=== PATIENT | female | born 1940 | race Caucasian/White ===

== ENCOUNTER 2016-02-17 10:04 | Outpatient (CLI) | payer MEDICARE, BC | END 2016-02-17 10:05 | disposition home or self-care (01) | LOC: BURLAB 10:04 | PROVIDERS: ATTEND Internal Medicine Hematology & Oncology | DX: C56.9 Malignant neoplasm of unspecified ovary (principal); R11.2 Nausea with vomiting, unspecified | CPT/HCPCS: 36415; 86304 ==

== ENCOUNTER 2016-02-22 08:33 | Outpatient (CLI) | payer MEDICARE, BC ==
[2016-02-22] MEDS ORDERED: Iopamidol 370 76% 100 ML VIAL ONE (09:00)
--- NOTE | 2016-02-22 16:28 | CT ---
CT ABDOMEN AND PELVIS WITH CONTRAST 02/22/2016 COMPARISON: PET CT scan from 12/30/2014, done at [facility]. TECHNIQUE: Axial slices were acquired after giving IV contrast and oral contrast. Coronal and sag ittal reconstructions were then done. FINDINGS: The lung bases are clear. No pulmonary nodules or effusions are seen. As before, numerous cystic lesions are seen throughout the liver. They seem slightly more numerous than before and a few are larger, though, on the prior PET scan, I note that there was no activity i n this region. Gallstones are seen in the gallbladder. The spleen and pancreas are unremarkable. A small nodule in the left adrenal gland is stable, measuring about 1.5 cm in size. The kidneys are unremarkable. The abdominal aorta is calcified but shows no aneurysm. The bowel is nondistended with no sign of obstruction. There is a moderate amount of fecal material in the colon. No inflammatory changes are seen around the bowel, nor is there any bowel wall thick ening, evidence of obstruction, or other acute change. There is no free fluid in the abdomen or pelvis. Regarding the mass seen in the left pericolic gutt er previously, it has increased in size over the interval, now measuring 2.1 cm in length. I could not detect the nodule seen in the anterior pelvis on the prior study, probably due to the patient's bladder being very distended today, making that area difficult to see. There is an enhancing nodule posterior to the urinary bladder, on the right, measuring 1.7 cm in size, correlating with a prior hypermetabolic focus. The size is similar to before. There are two other areas in the deep pelvis, of a questionable small, subcentimeter nodule, one measuring 6.5 mm, on the right, and another junior uring about 8 to 9 mm, on the left, just anterior to the left SI joint. Obviously, a repeat PET sca n would be helpful in determining if these were significant. CT of the pelvis otherwise showed no additional findings. No inflammatory change or free fluid was present. IMPRESSION 1. The nodule in the left pericolic gutter has increased in size slightly over time. The anterior pelvic nodule was not visible. The posterior pelvic nodule, posterior to the urinary bladder, is ab out the same size (1.7 cm). There may be two other subcentimeter nodules in the pelvis, though this is less certain. 2. No evidence of ascites or other signs of increasing abdominal fluid. 3. Scattered hepatic cysts that seem slightly larger and slightly more numerous than in 2015. 4. Gallstones. 5. Stable left adrenal mass, most likely benign. POS: HOME
== END 2016-02-22 08:34 | disposition home or self-care (01) ==
LOC: BURCT 08:33
PROVIDERS: ATTEND Internal Medicine Hematology & Oncology
DX: C56.9 Malignant neoplasm of unspecified ovary (principal); K80.80 Other cholelithiasis without obstruction
CPT/HCPCS: 74177

== ENCOUNTER 2016-03-30 09:25 | Outpatient (CLI) | payer MEDICARE, BC | END 2016-03-30 09:26 | disposition home or self-care (01) | LOC: BURLAB 09:25 | PROVIDERS: ATTEND Internal Medicine Hematology & Oncology | DX: C56.9 Malignant neoplasm of unspecified ovary (principal); R11.2 Nausea with vomiting, unspecified | CPT/HCPCS: 36415; 86304 ==

== ENCOUNTER 2016-04-21 08:45 | Outpatient (CLI) | payer MEDICARE, BC | END 2016-04-21 08:46 | disposition home or self-care (01) | LOC: BURLAB 08:45 | PROVIDERS: ATTEND Internal Medicine Hematology & Oncology | DX: C56.9 Malignant neoplasm of unspecified ovary (principal); R11.2 Nausea with vomiting, unspecified | CPT/HCPCS: 36415; 86304 ==

== ENCOUNTER 2016-08-22 08:55 | Outpatient (CLI) | payer MEDICARE, BC ==
[2016-08-22] MEDS ORDERED: Iopamidol 370 76% 100 ML VIAL ONE (09:00)
--- NOTE | 2016-08-22 21:46 | CT ---
CT ABDOMEN AND PELVIS WITH CONTRAST: Comparison: 02-22-16, 02-28-13 Technique: Axial slices were acquired then coronal and sagittal reconstructions were done. FINDINGS: The lung bases are clear. Liver is stable in size. There are multiple cystic areas scattered through out it. Looking over the interval there seems to have been slight increase in the size of some the c ystic areas and perhaps a few new ones as well. The liver is normal in size. The pancreas showed no mass. The main pancreatic duct is visible but not greatly dilated. Gallstones are noted in the gallb ladder. The kidney showed no sign of mass or hydronephrosis. There is a small mass in the left adren al gland measuring about 1.4 cm in size that is stable and has characteristics of an adenoma. The ab dominal aorta showed no sign of aneurysm. It is densely calcified in places, however. The bowel showed no sign of obstruction. No ascites is present. No free air was seen. There are no i nflammatory changes around bowel. The February scan showed a 2.1 cm nodular density in the left paracolic gutter near the iliac crest. I cannot definitely identify it on today's study. Additionally, the former study showed what appears to be nodule between the rectum and the urinary bladder to the right of midline. There is some lester t increased density here but I cannot confirm a measurable nodule. No free fluid is seen in the pelv is. Old post op changes and degenerative findings are present in the patient's spine. IMPRESSION: 1. Multiple small cystic areas in the liver. Some have increased slightly in size since February whic h may be significant. A PET scan might be useful to know if any of these are hypermetabolic. 2. The left paracolic gutter nodule seen in February is not clearly visible on today's scan, nor is t he nodule that was seen between the rectum and urinary bladder to the right side of midline. 3. Gallstones. 4. Stable left adrenal nodule. POS: HOME
== END 2016-08-22 08:56 | disposition home or self-care (01) ==
LOC: BURCT 08:55
PROVIDERS: ATTEND Internal Medicine Hematology & Oncology
DX: C48.8 Malignant neoplasm of overlapping sites of retroperitoneum and peritoneum (principal); C56.9 Malignant neoplasm of unspecified ovary; K80.20 Calculus of gallbladder without cholecystitis without obstruction; K76.89 Other specified diseases of liver; E27.9 Disorder of adrenal gland, unspecified
CPT/HCPCS: 74177; A4216

== ENCOUNTER 2016-08-24 03:14 | Emergency (ER) | payer MEDICARE, BC ==
[2016-08-24] MEDS ORDERED: Nitroglycerin 0.4 MG TAB (25 Tab Bottle) ONE (03:39)
[2016-08-24 03:54] LABS: INR-International Normal Ratio 1.1; PTT 30.6 SEC (22.9-36.1); Prothrombin Time 14.1 SEC (12.0-14.7)
[2016-08-24 03:57] LABS: #Basophils 0.1 thou/uL (0.0-0.2); #Eosinphils 0.2 thou/uL (0.0-0.7); #Lymphocytes 1.5 thou/uL (1.20-3.40); #Neutrophils 5.3 thou/uL (1.40-6.50); %Eosinophils 2.5 % (0.0-10.0); %Lymphocytes 18.7 % (21.0-51.0); %Monocytes 12.8 % (0.0-10.0); Hemoglobin 9.7 g/dL (12.0-16.0); Mean Corpuscular HGB CONC 34.6 g/dL (32.0-36.0); Mean Corpuscular Hemoglobin 32.6 pg (27.0-31.0); Mean Corpuscular Volume 94.2 fl (81.0-99.0); Mean Platelet Volume 7.5 fL (7.4-10.4); Platelet Count 137 thou/uL (130-400); RBC Distribution Width 17.7 % (11.5-14.5); Red Blood Cell (RBC) Count 2.98 mill/uL (4.20-5.40); White Blood Cell (WBC) Count 8.1 thou/uL (4.8-10.8)
[2016-08-24 04:02] LABS: ALT (SGPT) 91 U/L (8-55); AST (SGOT) 72 U/L (5-34); Albumin 3.7 g/dL (3.4-4.8); Alkaline Phosphatase 158 U/L (40-150); Anion Gap 15 mmol/L (10-20); BUN (Urea Nitrogen) 16 mg/dL (9.8-20.1); Bilirubin, Total 0.2 mg/dL (0.2-1.2); Calc. Creatinine Clearance 0 mL/min (70-130); Carbon Dioxide 23 mmol/L (23-31); Chloride 103 mmol/L (98-107); D-Dimer Test 0.52 *mcg/mL (0.27-0.43); Estimated GFR-MDRD 72; Globulin 2.9 g/dL (2.4-3.5); Glucose 98 mg/dL (83-110); Potassium 4.3 mmol/L (3.5-5.1); Protein, Total 6.6 g/dL (6.0-8.3); Sodium 137 mmol/L (136-145)
[2016-08-24 04:03] LABS: CKMB 1.2 ng/mL (0-6.6); Troponin I Less than 0.010 ng/mL (< 0.028)
--- NOTE | 2016-08-24 07:20 | RAD ---
PORTABLE CHEST: Date: 08/24/16 An AP portable film at 0331 hours is compared with a 03/03/15 study from [facility]. FINDINGS: The heart is normal in size for age. The lungs are mildly hyperexpanded, but no lobar infiltrates ar e seen. No effusions are seen. While no opacities were seen in the lungs, see CT report to follow. M ediPort catheter is in place on the right as usual. IMPRESSION: No adverse change since the prior study. See CT report to follow. POS: HOME
--- NOTE | 2016-08-24 08:00 | CT ---
PRELIMINARY REPORT/[facility]/EMERGENCY AFTER HOURS PROCEDURE: EXAM: CT Angiography Chest With Intravenous Contrast CT Angiography Abdomen and Pelvis With Intravenous Contrast CLINICAL HISTORY: 76 years old, female; Signs and symptoms; Shortness of breath; Patient HX: Patient presents to the e r for sub-sternal chest pain; SOB. Elevated d-dimer. HX of ovarian ca on chemo TECHNIQUE: Axial computed tomographic angiography images of the chest, abdomen and pelvis with intravenous cont rast using CT angiography protocol. This CT exam was performed using one or more of the following do se reduction techniques: automated exposure control, adjustment of the mA and/or kV according to patient size, and/or use of iterative reconstruction technique. Coronal reformatted images were created and reviewed. CONTRAST: 95 mL of ISOVUE 370 administered intravenously. COMPARISON: No relevant prior studies available. FINDINGS: VASCULATURE: Aorta: The ascending aorta at the level of the right pulmonary artery measures 3 cm. Mild atheroscle rotic calcifications affect the aorta and its branches. No aortic aneurysm. No dissection. Pulmonary arteries: The main pulmonary artery measures 2.3 cm. No evidence of acute pulmonary emboli sm upto the subsegmental level. CHEST: Lungs: Mild atelectasis is seen in both lung bases. Patchy opacities in the right upper lobe, middle lobe and lingula may represent atelectasis or infection. Pleural space: Unremarkable. No significant effusion. No pneumothorax. Heart: Unremarkable. No cardiomegaly. No significant pericardial effusion. Bones/joints: There are mild degenerative changes present. Mild dextroscoliosis of the thoracic spin e is seen. Amorphous calcification posterior to both humeral heads likely represents calcific tendinosis. No acute fracture. No dislocation. Soft tissues: Unremarkable. Lymph nodes: Unremarkable. No enlarged lymph nodes. ABDOMEN: Subcentimeter hypodensities in the liver are too small to characterize.The visualized portions of t he upper abdomen show no significant abnormalities. IMPRESSION: 1. No evidence of acute pulmonary embolism upto the subsegmental level. 2. Patchy opacities in the right upper lobe, middle lobe and lingula may represent atelectasis or in fection. 3. Subcentimeter hypodensities in the liver are too small to characterize. Thank you for allowing us to participate in the care of your patient. Dictated and Authenticated by: Karlene Godfrey MD 08/24/2016 5:30 AM Central Time ([place] \T\ [place]) FINAL REPORT CT ANGIO OF THE CHEST WITH CONTRAST: Date: 08/24/[address] of the chest was done emergently for evaluation of chest pain and an elevated D-Dimer. Axi al slices were acquired after a bolus of IV contrast, then reconstructions through the pulmonary art eries were done. FINDINGS: There is excellent opacification of the pulmonary arteries with no filling defects to suggest emboli . Arteriosclerotic change is present in the aorta and coronary vessels. There is no sign of pericard ial effusion. No mediastinal mass was seen. There are a few patchy hypodensities in this patient's lungs that are scattered. More are in the lef t lung, especially the lingula, but some in the right upper lobe as well. The findings could represe nt patches of atelectasis or infection. Less likely would be neoplasm, though a PET scan would proba malcolm be better at assessing that. There are no effusions. The scans through the upper abdomen show se veral scattered cystic changes in the liver, which have been described on the recent abdominal CT sc an. IMPRESSION: 1. No evidence of pulmonary embolism. 2. A few patchy opacities scattered throughout the lungs, left more than right. See comments above. These will probably bear future follow-up. Report in agreement with preliminary reading by Sravanthi. POS: HOME
== END 2016-08-24 05:25 | disposition short-term general hospital (02) ==
LOC: BURERS 03:14
DX: R07.2 Precordial pain (principal); E78.5 Hyperlipidemia, unspecified; I10 Essential (primary) hypertension; Z86.73 Personal history of transient ischemic attack (TIA), and cerebral infarction without residual deficits
CPT/HCPCS: 71010; 71275; 80053; 82553; 84484; 85025; 85379; 85610; 85730; 93005

== ENCOUNTER 2016-09-13 08:28 | Outpatient (CLI) | payer MEDICARE, BC ==
[2016-09-13 09:00] LABS: Hemoglobin 7.9 g/dL (12.0-16.0); Mean Corpuscular HGB CONC 34.1 g/dL (32.0-36.0); Mean Corpuscular Hemoglobin 32.3 pg (27.0-31.0); Mean Corpuscular Volume 94.7 fl (81.0-99.0); Mean Platelet Volume 6.2 fL (7.4-10.4); Platelet Count 151 thou/uL (130-400); RBC Distribution Width 18.2 % (11.5-14.5); Red Blood Cell (RBC) Count 2.46 mill/uL (4.20-5.40); White Blood Cell (WBC) Count 2.7 thou/uL (4.8-10.8)
== END 2016-09-13 08:29 | disposition home or self-care (01) ==
LOC: BURLAB 08:28
PROVIDERS: ATTEND Internal Medicine Hematology & Oncology
DX: C48.8 Malignant neoplasm of overlapping sites of retroperitoneum and peritoneum (principal); C56.9 Malignant neoplasm of unspecified ovary; R11.2 Nausea with vomiting, unspecified
CPT/HCPCS: 36415; 85027

== ENCOUNTER 2016-10-31 08:22 | Outpatient (CLI) | payer MEDICARE, BC ==
[2016-10-31 09:13] LABS: ALT (SGPT) 19 U/L (8-55); AST (SGOT) 28 U/L (5-34); Albumin 4.1 g/dL (3.4-4.8); Alkaline Phosphatase 93 U/L (40-150); Anion Gap 13 mmol/L (10-20); BUN (Urea Nitrogen) 22 mg/dL (9.8-20.1); Bilirubin, Total 0.3 mg/dL (0.2-1.2); Calc. Creatinine Clearance 0 mL/min (70-130); Calcium 9.6 mg/dL (7.8-10.44); Carbon Dioxide 24 mmol/L (23-31); Cardiac Risk 3.7 (Less than 4.5); Chloride 106 mmol/L (98-107); Cholesterol 201 mg/dl (< 200 Desired); Estimated GFR-MDRD 70; Globulin 2.2 g/dL (2.4-3.5); Glucose 94 mg/dL (83-110); HDL Cholesterol 54 mg/dL (>60 Neg Risk); LDL Cholesterol, Calculated 132 mg/dL; Potassium 4.8 mmol/L (3.5-5.1); Protein, Total 6.3 g/dL (6.0-8.3); Sodium 138 mmol/L (136-145); Triglycerides 77 mg/dL (Less than 150)
[2016-10-31 09:24] LABS: #Basophils 0.1 thou/uL (0.0-0.2); #Eosinphils 0.1 thou/uL (0.0-0.7); #Lymphocytes 1.5 thou/uL (1.20-3.40); #Monocytes 0.8 thou/uL (0.11-0.59); #Neutrophils 2.6 thou/uL (1.40-6.50); %Basophils 2.2 % (0.0-1.0); %Eosinophils 2.8 % (0.0-10.0); %Lymphocytes 29.2 % (21.0-51.0); %Monocytes 14.9 % (0.0-10.0); %Neutrophils 50.8 % (42.0-75.0); Hemoglobin 10.2 g/dL (12.0-16.0); Mean Corpuscular HGB CONC 31.4 g/dL (32.0-36.0); Mean Corpuscular Hemoglobin 29.7 pg (27.0-31.0); Mean Corpuscular Volume 94.7 fl (81.0-99.0); Mean Platelet Volume 6.3 fL (7.4-10.4); Platelet Count 277 thou/uL (130-400); RBC Distribution Width 18.4 % (11.5-14.5); Red Blood Cell (RBC) Count 3.42 mill/uL (4.20-5.40); White Blood Cell (WBC) Count 5.1 thou/uL (4.8-10.8)
[2016-10-31 09:27] LABS: Free T4 (Free Thyroxine) 1.01 ng/dL (0.70-1.48)
== END 2016-10-31 08:23 | disposition home or self-care (01) ==
LOC: BURLAB 08:22
PROVIDERS: ATTEND Internal Medicine
DX: C56.9 Malignant neoplasm of unspecified ovary (principal); I45.10 Unspecified right bundle-branch block; M15.0 Primary generalized (osteo)arthritis; I10 Essential (primary) hypertension; Z79.899 Other long term (current) drug therapy
CPT/HCPCS: 36415; 80053; 80061; 84439; 84443; 85025

== ENCOUNTER 2017-02-23 08:03 | Emergency (ER) | payer MEDICARE, BC | END 2017-02-23 08:34 | disposition home or self-care (01) | LOC: BURERS 08:03 | DX: G44.209 Tension-type headache, unspecified, not intractable (principal); I10 Essential (primary) hypertension; E78.5 Hyperlipidemia, unspecified; Z86.73 Personal history of transient ischemic attack (TIA), and cerebral infarction without residual deficits | CPT/HCPCS: 99283 ==

== ENCOUNTER 2017-03-23 10:26 | Outpatient (CLI) | payer MEDICARE, BC ==
--- NOTE | 2017-03-23 12:55 | RAD ---
CERVICAL SPINE: Date: 03-23-17 FINDINGS: AP, lateral, and odontoid views were provided. There is severe degenerative changes in this patient's cervical spine. 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 There is disc space narrowing with large osteophytes at C3-4, C5-6 and C6-7. There is a prominent anterolisthesis of C7 o n T1 by at least 5 mm. This appears to be due to facet arthritis which is prominent at this level. Th e C1-2 dens distance is normal. There are no signs of bony destruction or fracture. The soft tissues are normal in thickness. IMPRESSION: Severe degenerative changes as noted above. POS: [facility]
== END 2017-03-23 10:27 | disposition home or self-care (01) ==
LOC: BURRAD 10:26
PROVIDERS: ATTEND Family Medicine
DX: M54.2 Cervicalgia (principal); M47.812 Spondylosis without myelopathy or radiculopathy, cervical region
CPT/HCPCS: 72040

== ENCOUNTER 2017-04-20 22:07 | Emergency (ER) | payer MEDICARE, BC ==
[2017-04-20] MEDS ORDERED: traMADol HCl 50 MG TAB ONE (22:42)
[2017-04-20 22:59] LABS: Bilirubin Negative (Negative); Blood, Urine Trace (Negative); Clarity Clear (Clear); Glucose, Urine (Dipstick) Negative (Negative); Leukocyte Negative (Negative); Nitrite Negative (Negative); Protein, Urine (Dipstick) > or equal to 300 mg/dL (Neg-Trace); Specific Gravity, Urine 1.015 (1.005-1.030); Urobilinogen 0.2 mg/dL (0.2-1.0); pH, Urine 5.5 (5.0-9.0)
[2017-04-20 23:06] LABS: Bacteria/HPF Rare-Few HPF (None Seen); RBC/HPF 0-3 HPF (0-3); Squamous Epithelial 0-3 HPF (0-3)
[2017-04-20 23:07] LABS: #Basophils 0.1 thou/uL (0.0-0.2); #Eosinphils 0.2 thou/uL (0.0-0.7); #Monocytes 0.7 thou/uL (0.11-0.59); #Neutrophils 4.9 thou/uL (1.40-6.50); %Basophils 1.6 % (0.0-1.0); %Eosinophils 2.5 % (0.0-10.0); %Lymphocytes 25.4 % (21.0-51.0); %Neutrophils 61.5 % (42.0-75.0); Hemoglobin 13.4 g/dL (12.0-16.0); Mean Corpuscular HGB CONC 35.1 g/dL (32.0-36.0); Mean Corpuscular Hemoglobin 29.7 pg (27.0-31.0); Mean Corpuscular Volume 84.5 fl (81.0-99.0); Mean Platelet Volume 7.8 fL (7.4-10.4); Platelet Count 191 thou/uL (130-400); RBC Distribution Width 15.1 % (11.5-14.5); Red Blood Cell (RBC) Count 4.51 mill/uL (4.20-5.40)
[2017-04-20 23:16] LABS: ALT (SGPT) 19 U/L (8-55); AST (SGOT) 24 U/L (5-34); Albumin 3.9 g/dL (3.4-4.8); Alkaline Phosphatase 90 U/L (40-150); Anion Gap 13 mmol/L (10-20); BUN (Urea Nitrogen) 21 mg/dL (9.8-20.1); Bilirubin, Total 0.3 mg/dL (0.2-1.2); Calc. Creatinine Clearance 0 mL/min (70-130); Calcium 9.3 mg/dL (7.8-10.44); Carbon Dioxide 26 mmol/L (23-31); Chloride 102 mmol/L (98-107); Estimated GFR-MDRD 73; Globulin 2.4 g/dL (2.4-3.5); Glucose 92 mg/dL (83-110); Potassium 4.6 mmol/L (3.5-5.1); Protein, Total 6.3 g/dL (6.0-8.3); Sodium 136 mmol/L (136-145)
[2017-04-20] MEDS ORDERED: Lisinopril 20 MG TAB ONE (23:27)
[2017-04-20] MEDS ORDERED: Ketorolac Tromethamine 30 MG/ML VIAL ONE (23:27)
== END 2017-04-20 23:55 | disposition home or self-care (01) ==
LOC: BURERS 22:07
DX: I10 Essential (primary) hypertension (principal); M54.2 Cervicalgia; E78.5 Hyperlipidemia, unspecified; Z85.43 Personal history of malignant neoplasm of ovary; Z86.73 Personal history of transient ischemic attack (TIA), and cerebral infarction without residual deficits; Z79.899 Other long term (current) drug therapy
CPT/HCPCS: 36415; 80053; 81003; 81015; 84443; 85025; 96372; J1885

== ENCOUNTER 2017-06-28 09:02 | Emergency (ER) | payer MEDICARE, BC ==
--- NOTE | 2017-06-28 09:40 | RAD ---
LEFT ELBOW FOUR VIEWS: History: Fall with injury and pain. FINDINGS: There is a mildly displaced and distracted fracture involving the olecranon of the proximal ulna. There is also bony fragment along the lateral epicondyle concerning for acute fracture. There is join t effusion. IMPRESSION: 1. Fracture of the olecranon with mild displacement. 2. Evidence of fracture fragment from the lateral epicondyle. This is an age indeterminate fragment a s this does show some cortication and may represent an old injury. POS: [facility]
--- NOTE | 2017-06-28 12:31 | ULT ---
LEFT UPPER EXTREMITY VENOUS DUPLEX STUDY: Technique: Veins of left upper extremity evaluated with color doppler spectral analysis, and compress ion. Indications: Fall with elbow fracture and left upper extremity pain and edema. FINDINGS: Left jugular vein shows normal flow and compression. The left subclavian vein shows normal flow with doppler. Left axillary vein, brachial vein, left basilic vein and left cephalic vein show normal flow and compression. The left radial and ulnar veins were imaged and show normal flow and compression. IMPRESSION: 1. No evidence of left upper extremity venous thrombosis. POS: [facility]
== END 2017-06-28 11:12 | disposition home or self-care (01) ==
LOC: BURERS 09:02
DX: S52.022A Displaced fracture of olecranon process without intraarticular extension of left ulna, initial encounter for closed fracture (principal); I10 Essential (primary) hypertension; E78.5 Hyperlipidemia, unspecified; Z86.73 Personal history of transient ischemic attack (TIA), and cerebral infarction without residual deficits; W19.XXXA Unspecified fall, initial encounter
CPT/HCPCS: 24670

== ENCOUNTER 2017-07-12 14:31 | Outpatient (CLI) | payer MEDICARE, BC ==
--- NOTE | 2017-07-13 07:43 | RAD ---
LEFT RIBS WITH PA CHEST 07/12/17 The chest film was compared with a 08/24/16 study. The heart is normal in size. Dense calcification is seen in the aortic arch. There is no vascular con gestion, edema, or pleural effusion. A Mediport catheter is in place as before. The lungs are clear e xcept for some lingular scarring. Regarding the ribs, there are fractures of the left 8th and 9th ribs near their distal ends. There is no significant displacement lower few ribs are difficult to see well beyond that point. There is no pneumothorax or pleural effusion. IMPRESSION: Fractures of the distal ends of the left 8th and 9th ribs. Code T POS: HOME
== END 2017-07-12 14:32 | disposition home or self-care (01) ==
LOC: BURRAD 14:31
PROVIDERS: ATTEND Family Medicine
DX: S22.42XA Multiple fractures of ribs, left side, initial encounter for closed fracture (principal); R07.81 Pleurodynia

== ENCOUNTER 2018-03-06 09:11 | Outpatient (CLI) | payer MEDICARE, BC ==
--- NOTE | 2018-03-06 23:23 | CT ---
CT ABDOMEN AND PELVIS WITH CONTRAST 03/06/18 Comparison is made with the 08/22/16 study. Axial slices were acquired after giving oral and IV contra st. Coronal and sagittal reconstructions were done afterwards. The lung bases are clear. There are no effusions. As before, there are multiple cystic lesions spread throughout the liver. They are approximately the same in number. There are a few of the larger ones that are slightly larger than before. The largest is in the medial right lobe of the liver and measur es about 1.6 cm today compared to 1.5 cm before. The spleen and pancreas were unremarkable. There aster ears to be a gallstone in the gallbladder. A left adrenal mass has been noted previously. On the prio r scan it measured about 1.4 cm in size, but today it is about 1.8 cm. A cyst in the upper pole of th e left kidney is unchanged. No solid renal masses are seen and no hydronephrosis is present. The aort a is calcified but no dilated. There is no distention of bowel to suggest obstruction. Some of the small intestinal bowel wall in th e pelvic region seems thickened. I do not see substantial amounts of fluid around the bowel. No free air was seen. CT of the pelvis showed no pelvic mass or large fluid collection. As noted above, some of the loops o f small bowel seem rather thick which is a nonspecific finding. Degenerative changes are seen in the spine and there is a posterior lumbar fusion at the lower three levels. IMPRESSION: 1. Slight growth in some of the cystic lesions of the liver over time. The overall number is sim ilar. 2. The left adrenal mass has increased in size slightly. 3. Some apparent thickening of the bowel wall of the small intestine in the pelvic region. This is a nonspecific finding that could be seen in anything from mild enteritis to neoplastic disease. 4. No substantial amount of fluid seen in the abdomen or pelvis. 5. An additional finding not mentioned above was one or two nodes in the small bowel mesentery t hat measured up to 1.5 cm in size. PET scan would be much more sensitive looking for any hypermetabol ic activity than this single CT scan. POS: HOME
== END 2018-03-06 09:12 | disposition home or self-care (01) ==
LOC: BURCT 09:11
PROVIDERS: ATTEND Internal Medicine Hematology & Oncology
DX: C48.8 Malignant neoplasm of overlapping sites of retroperitoneum and peritoneum (principal); C56.9 Malignant neoplasm of unspecified ovary; K76.89 Other specified diseases of liver; E27.9 Disorder of adrenal gland, unspecified; K63.89 Other specified diseases of intestine
CPT/HCPCS: 74177

== ENCOUNTER 2018-06-02 09:07 | Emergency (ER) | payer MEDICARE, BC ==
[~2018-06-02 09:07] MED LIST: Iopamidol 370 76% 100 ML VIAL ONE
[2018-06-02 10:05] LABS: ALT (SGPT) 31 U/L (8-55); AST (SGOT) 54 U/L (5-34); Albumin 3.9 g/dL (3.4-4.8); Alkaline Phosphatase 186 U/L (40-150); Anion Gap 14 mmol/L (10-20); BUN (Urea Nitrogen) 24 mg/dL (9.8-20.1); Bilirubin, Total 0.2 mg/dL (0.2-1.2); Calc. Creatinine Clearance 0 mL/min (70-130); Calcium 9.3 mg/dL (7.8-10.44); Carbon Dioxide 25 mmol/L (23-31); Chloride 100 mmol/L (98-107); Estimated GFR-MDRD 47; Globulin 2.4 g/dL (2.4-3.5); Glucose 110 mg/dL (83-110); Potassium 3.9 mmol/L (3.5-5.1); Protein, Total 6.3 g/dL (6.0-8.3); Sodium 135 mmol/L (136-145)
[2018-06-02 10:18] LABS: Band 29 % (5-11); Blast 1 % (0-0); Hemoglobin 7.1 g/dL (12.0-16.0); Lymphocytes 10 % (21-51); MDiff Complete? YES; Macrocytosis SLIGHT = 6-15 cells (100X) (0-5/hpf); Mean Corpuscular HGB CONC 33.9 g/dL (32.0-36.0); Mean Corpuscular Hemoglobin 30.9 pg (27.0-31.0); Mean Corpuscular Volume 91.1 fL (78.0-98.0); Mean Platelet Volume 8.1 fL (7.4-10.4); Metamyelocyte 1 % (0-0); Microcytosis MODERATE=15-30 cells (100X) (0-5/hpf); Monocytes 8 % (0-10); Myelocyte 4 % (0-0); Neutrophil 39 % (42-75); Nucleated RBC 1 % (0); Platelet Count 60 thou/uL (130-400); Polychromasia SLIGHT = 2-3 cells (100X) (0-2/hpf); Promyelocytes 8 % (0-0); RBC Distribution Width 16.3 % (11.5-14.5); Rouleaux Formation SLIGHT = 1-5 cells (100X) (None Seen); Toxic Granulation MODERATE; White Blood Cell (WBC) Count 42.7 thou/uL (4.8-10.8)
[2018-06-02 10:24] LABS: Bilirubin Negative (Negative); Blood, Urine Negative (Negative); Clarity Clear (Clear); Glucose, Urine (Dipstick) Negative (Negative); Leukocyte Negative (Negative); Nitrite Negative (Negative); Protein, Urine (Dipstick) Negative (Neg-Trace); Urobilinogen 0.2 mg/dL (0.2-1.0)
[2018-06-02 10:57] LABS: CKMB 5.9 ng/mL (0-6.6)
[2018-06-02] MEDS ORDERED: Piperacillin/Tazobactam 4.5 GM VIAL ONE (11:12)
[2018-06-02] MEDS ORDERED: Sodium Chloride 0.9% 100 ML ONE (11:12)
--- NOTE | 2018-06-02 11:39 | RAD ---
AP PORTABLE CHEST: 06/02/2018 0932 HOURS COMPARISON: 08/24/2016 FINDINGS: The heart is borderline enlarged and seems slightly larger than it was in 2016. There are no congest neema findings or pleural effusions, however. No lobar pulmonary infiltrates are seen. Basilar lung m arkings are perhaps a little more prominent than they were previously. This may or may not be signif icant. IMPRESSION: 1. Borderline cardiomegaly and arteriosclerosis. Cardiac size seems marginally larger than in 2017. No congestive findings. 2. Minor prominence of basilar lung markings, which may or may not be significant. POS: HOME
--- NOTE | 2018-06-02 23:43 | CT ---
CT ANGIO OF THE CHEST WITH CONTRAST 06/02/18 Comparison is made with a 08/24/16 study. There is good opacification of the pulmonary arteries. No defects were seen to suggest emboli. There is no sign of aortic dissection or aneurysm. Calcifications are seen within the aorta. There is no sign of pericardial effusion. The lungs are clear with no acute infiltrate or effusion seen. Some min imal dependent atelectasis is noted. There is a small nodular 1.3 cm density in the right lung apex. While the edges are slightly speculated, the size and appearance has not changed since the 2017 CT sc an. Scans into a part of the upper abdomen showed no gross abnormalities in the upper parts of the liver and spleen. The left adrenal gland has a small 1.8 cm mass in it which has not changed since February. IMPRESSION: No evidence of pulmonary embolism or other acute thoracic change. Findings called to Dr. Solis at 1122 on 06/02/18. POS: HOME
== END 2018-06-02 12:04 | disposition home or self-care (01) ==
LOC: BURERS 09:07
DX: A41.9 Sepsis, unspecified organism (principal); D69.6 Thrombocytopenia, unspecified; E78.5 Hyperlipidemia, unspecified; Z86.73 Personal history of transient ischemic attack (TIA), and cerebral infarction without residual deficits; Z87.891 Personal history of nicotine dependence; Z79.899 Other long term (current) drug therapy
CPT/HCPCS: 71045; 71275; 80053; 81003; 82553; 83605; 83880; 84484; 85025; 85379; 87040; 87086; 93005; 96361; 96365; 96375; J2543; J3370; J3490; Q9967

== ENCOUNTER → 2018-06-22 | Day surgery (SDC) | payer MEDICARE, BC ==
[~2018-06-22] MED LIST changes: +Acetaminophen 500 MG TAB ONE; -Iopamidol 370 76% 100 ML VIAL ONE; +Sodium Chloride 0.9% 10 ML ONE; +Sodium Chloride 0.9% 30 ML ONE; +diphenhydrAMINE 25 MG CAP ONE
[2018-06-22 09:40] VITALS: BP 100/54
[2018-06-22 13:33] LABS: Hemoglobin 8.7 g/dL (12.0-16.0); Mean Corpuscular HGB CONC 32.2 g/dL (32.0-36.0); Mean Corpuscular Hemoglobin 29.5 pg (27.0-31.0); Mean Corpuscular Volume 91.5 fL (78.0-98.0); Platelet Count 225 thou/uL (130-400); RBC Distribution Width 15.7 % (11.5-14.5); Red Blood Cell (RBC) Count 2.95 mill/uL (4.20-5.40); White Blood Cell (WBC) Count 2.7 thou/uL (4.8-10.8)
[2018-06-22 13:55] VITALS: TEMP 98
== END ==
LOC: BUR/OP 08:59
PROVIDERS: ATTEND Internal Medicine Hematology & Oncology
PROC: 30233N1 Transfusion of Nonautologous Red Blood Cells into Peripheral Vein, Percutaneous Approach (ICD-10-PCS; principal; 2018-06-22)
DX: D64.9 Anemia, unspecified (principal); D69.6 Thrombocytopenia, unspecified
CPT/HCPCS: 36415; 85027; 86850; 86900; 86901; 86922; J1642; P9016; Q0163

== ENCOUNTER 2019-03-19 11:52 | Emergency (ER) | payer MEDICARE, BC ==
[2019-03-19] MEDS ORDERED: Bisacodyl 10 MG SUPP ONE (12:10)
[2019-03-19] MEDS ORDERED: Magnesium Citrate 300 ML BOT ONE (12:10)
== END 2019-03-19 12:32 | disposition home or self-care (01) ==
LOC: BURERS 11:52
DX: K59.00 Constipation, unspecified (principal); K64.4 Residual hemorrhoidal skin tags; I10 Essential (primary) hypertension; E78.5 Hyperlipidemia, unspecified; Z86.73 Personal history of transient ischemic attack (TIA), and cerebral infarction without residual deficits; Z87.891 Personal history of nicotine dependence; Z79.899 Other long term (current) drug therapy
CPT/HCPCS: 82274; 99283

== ENCOUNTER 2019-07-29 08:52 | Outpatient (CLI) | payer MEDICARE, BC ==
[2019-07-29] MEDS ORDERED: Iopamidol 370 76% 100 ML VIAL ONE (13:44)
--- NOTE | 2019-07-29 15:07 | CT ---
CT ABDOMEN AND PELVIS: Date: 07/29/2019 Comparison is made with the 03/06/2018 study. Overall, there have not been any traumatic changes in t he interval. The lung bases are clear. The liver again has multiple cystic lesions scattered throughout it. They h ave changed minimally since the 2019 study. Perhaps a few have increased by 1.0 mm in width at most. There does not really seem to be more than there were previously. The spleen, pancreas, and aorta brooks w no acute findings. As before, a gallstone was suggested in the gallbladder, apparently in the neck. The left adrenal mass is no bigger than previously. There is no mass or hydronephrosis in either kid shon. The bowel shows no distention or wall thickening. Previously, there was some questionable slight thic kening in the small bowel and the pelvis, but I do not appreciate any such finding today. Also previo usly there was a question of maybe slight prominence in size of some of the mesenteric nodes, but the y are not remarkable today. No free air or free fluid was seen. CT of the pelvis showed no pelvic masses, fluid collections, or other acute changes. Urinary bladder is distended. Degenerative changes are substantial and present throughout the spine as usual. An incidental finding not mentioned above is a small cyst in the upper pole of the left kidney, which is not changed and i s of no concern. IMPRESSION: 1. Little significant change since the [address] 2. Multiple small hepatic cysts with little change since last year. 3. Gallstone. 4. No significant findings regarding the bowel today. POS: HOME
== END 2019-07-29 08:53 | disposition home or self-care (01) ==
LOC: BURCT 08:52
PROVIDERS: ATTEND Internal Medicine Hematology & Oncology
DX: C48.8 Malignant neoplasm of overlapping sites of retroperitoneum and peritoneum (principal); C56.9 Malignant neoplasm of unspecified ovary; R11.2 Nausea with vomiting, unspecified; K76.89 Other specified diseases of liver; K80.20 Calculus of gallbladder without cholecystitis without obstruction
CPT/HCPCS: 74177; Q9967

== ENCOUNTER 2019-11-22 08:53 | Outpatient (CLI) | payer MEDICARE, BC ==
--- NOTE | 2019-11-22 14:33 | CT ---
CT ABDOMEN AND PELVIS WITH CONTRAST: 11/22/19 Comparison is made with the prior CT of 07/29/19, as well as the 03/06/18 study. The lung bases are clear. The liver has multiple cystic areas spread throughout it, as on the prior scans. Two of them are slig htly larger than the 2019 study. The one in the medial right lobe near the junction with the left lob e is now 2.1 cm and the one in the medial left lobe adjacent to its junction with the right lobe is a bout 1.6 cm. Numerous other smaller cystic areas are spread throughout the liver. but they do not se em markedly different in size or number over the interval since 2019. The spleen, pancreas, and gallbladder were unremarkable. As on prior scans there appears to be a smal l low density left adrenal mass. It was measured at 1.7 cm today compared to 1.8 cm in 2019. Thus, it s significance is doubtful. The kidneys shows no solid mass or hydronephrosis. A small 1.3 cm cyst is seen in the upper pole of the left kidney, as before. The aorta shows calcification but no aneurysm. The bowel shows no distention or wall thickening. There is abundant fecal material in the colon, part icularly the right colon. No free air was seen, nor was there obvious intra-abdominal fluid. CT of the pelvis showed no pelvic masses, free fluid, or inflammatory changes. Extensive degenerativ e changes are present in the spine as usual. No bony destructive lesions were seen. IMPRESSION: 1. Minimal change in the appearance of the abdomen and pelvis since 2019. The most significant c hange is two of the larger hepatic cysts are slightly larger today than they were then. The other num erous cystic lesions spread throughout the liver seemed not significantly different in size or number . 2. Small left adrenal mass, stable. 3. No gross evidence of recurrent disease or intra-abdominal fluid. In view of the patient's inc reasing lab values, a PET scan would potentially be more sensitive at resolving smaller, harder to di scern disease. POS: HOME
[2019-11-22] MEDS ORDERED: Iopamidol 370 76% 100 ML VIAL ONE (15:04)
== END 2019-11-22 08:54 | disposition home or self-care (01) ==
LOC: BURCT 08:53
PROVIDERS: ATTEND Internal Medicine Hematology & Oncology
DX: C56.9 Malignant neoplasm of unspecified ovary (principal); C48.8 Malignant neoplasm of overlapping sites of retroperitoneum and peritoneum; R97.1 Elevated cancer antigen 125 [CA 125]; K76.89 Other specified diseases of liver; E27.8 Other specified disorders of adrenal gland
CPT/HCPCS: 74177; Q9967

== ENCOUNTER 2020-08-16 08:02 | Emergency (ER) | payer MEDICARE, BC ==
[2020-08-16] MEDS ORDERED: Diazepam 5 MG TAB ONE (10:19)
== END 2020-08-16 08:50 | disposition home or self-care (01) ==
LOC: BURERS 08:02
DX: B02.9 Zoster without complications (principal); I10 Essential (primary) hypertension; E78.5 Hyperlipidemia, unspecified; Z86.73 Personal history of transient ischemic attack (TIA), and cerebral infarction without residual deficits; Z87.891 Personal history of nicotine dependence
CPT/HCPCS: 99282

== ENCOUNTER 2020-08-17 09:11 | Outpatient (CLI) | payer MEDICARE, BC ==
[2020-08-17] MEDS ORDERED: Iopamidol 370 76% 100 ML VIAL ONE (09:21)
== END 2020-08-17 09:12 | disposition home or self-care (01) ==
LOC: BURCT 09:11
PROVIDERS: ATTEND Internal Medicine Hematology & Oncology
DX: C48.8 Malignant neoplasm of overlapping sites of retroperitoneum and peritoneum (principal); C56.9 Malignant neoplasm of unspecified ovary
CPT/HCPCS: 36415; 74177; 82565; Q9967

== ENCOUNTER 2021-06-23 08:34 | Outpatient (CLI) | payer MEDICARE, BC ==
[2021-06-23] MEDS ORDERED: Iopamidol 370 76% 100 ML VIAL FS ONE (08:35)
== END 2021-06-23 08:35 | disposition home or self-care (01) ==
LOC: BURCT 08:34
PROVIDERS: ATTEND Internal Medicine Hematology & Oncology
DX: C48.8 Malignant neoplasm of overlapping sites of retroperitoneum and peritoneum (principal); C56.2 Malignant neoplasm of left ovary; R11.2 Nausea with vomiting, unspecified; K66.8 Other specified disorders of peritoneum; K55.039 Acute (reversible) ischemia of large intestine, extent unspecified
CPT/HCPCS: 74177; Q9967

== ENCOUNTER 2021-08-23 10:36 | Emergency (ER) | payer MEDICARE, BC ==
[2021-08-23] MEDS ORDERED: Morphine 4 MG/ML VIAL ONE ×2 (11:17→12:53)
[2021-08-23] MEDS ORDERED: Ondansetron PF 4 MG/2 ML Vial ONE (11:17)
[2021-08-23] MEDS ORDERED: Boostrix 0.5 ML (Tdap) VIAL ONE (11:17)
[2021-08-23 11:30] LABS: #Basophils 0.1 thou/uL (0.0-0.2); #Eosinphils 0.1 thou/uL (0.0-0.7); #Lymphocytes 0.8 thou/uL (1.20-3.40); #Monocytes 0.3 thou/uL (0.11-0.59); %Basophils 1.8 % (0.0-1.0); %Lymphocytes 15.3 % (21.0-51.0); %Monocytes 6.2 % (0.0-10.0); %Neutrophils 75.8 % (42.0-75.0); Hemoglobin 10.3 g/dL (12.0-16.0); Mean Corpuscular HGB CONC 33.2 g/dL (32.0-36.0); Mean Corpuscular Hemoglobin 29.4 pg (27.0-31.0); Mean Corpuscular Volume 88.8 fL (78.0-98.0); Mean Platelet Volume 7.8 fL (7.4-10.4); Platelet Count 216 thou/uL (130-400); RBC Distribution Width 14.6 % (11.5-14.5); Red Blood Cell (RBC) Count 3.52 mill/uL (4.20-5.40); White Blood Cell (WBC) Count 5.2 thou/uL (4.8-10.8)
[2021-08-23 11:37] LABS: Prothrombin Time 13.7 sec (12.0-14.7)
[2021-08-23 11:39] LABS: PTT 93.1 sec (22.9-36.1)
[2021-08-23 11:43] LABS: ALT (SGPT) 12 U/L (8-55); AST (SGOT) 23 U/L (5-34); Albumin 3.7 g/dL (3.4-4.8); Alkaline Phosphatase 73 U/L (40-110); Anion Gap 14 mmol/L (10-20); BUN (Urea Nitrogen) 13 mg/dL (9.8-20.1); Bilirubin, Total 0.7 mg/dL (0.2-1.2); Calc. Creatinine Clearance 0 mL/min (70-130); Calcium 8.6 mg/dL (7.8-10.44); Carbon Dioxide 25 mmol/L (23-31); Chloride 105 mmol/L (98-107); Estimated GFR 87; Globulin 2.1 g/dL (2.4-3.5); Glucose 108 mg/dL (83-110); Potassium 3.9 mmol/L (3.5-5.1); Protein, Total 5.8 g/dL (5.8-8.1); Sodium 140 mmol/L (136-145)
[2021-08-23 12:51] LABS: SARS-CoV-2 NAA Rapid Test Not Detected (NotDetected)
== END 2021-08-23 13:00 | disposition short-term general hospital (02) ==
LOC: BURERS 10:36
DX: S72.142A Displaced intertrochanteric fracture of left femur, initial encounter for closed fracture (principal); S80.02XA Contusion of left knee, initial encounter; I45.10 Unspecified right bundle-branch block; I10 Essential (primary) hypertension; E78.5 Hyperlipidemia, unspecified; W18.30XA Fall on same level, unspecified, initial encounter; Z20.822 Contact with and (suspected) exposure to COVID-19; Z23 Encounter for immunization; Z85.43 Personal history of malignant neoplasm of ovary; Z86.73 Personal history of transient ischemic attack (TIA), and cerebral infarction without residual deficits; Z87.891 Personal history of nicotine dependence; Z79.899 Other long term (current) drug therapy
CPT/HCPCS: 36415; 76000; 80053; 85025; 85610; 85730; 90471; 90715; 93005; 96361; 96374; 96375; 96376; J2270; J2405; U0002

== ENCOUNTER 2021-08-26 16:49 | Inpatient (IN) | payer MEDICARE, BC ==
[2021-08-26] MEDS ORDERED: NIFEdipine XL 30 MG TAB PO PRN (20:54)
[2021-08-26] MEDS ORDERED: Cyclobenzaprine 10 MG TAB PO PRN (20:54)
[2021-08-26] MEDS: Melatonin 3 MG TAB PO SCH (22:19)
[2021-08-26] MEDS: Senokot S 8.6-50 MG TAB PO SCH (22:19)
[2021-08-26] MEDS: Aspirin 81 mg Enteric Coated Tablet PO SCH (22:19)
[2021-08-26] MEDS: Ascorbic Acid 500 mg Chewable Tablet PO SCH (22:19)
[2021-08-27] MEDS: Acetaminophen 500 MG TAB PO SCH ×4 (00:21→17:04)
[2021-08-27] MEDS ORDERED: Ondansetron ODT 4 MG TAB PO PRN (05:46)
[2021-08-27] MEDS: cloNIDine 0.1 MG TAB PO PRN (06:25)
[2021-08-27] MEDS: Ascorbic Acid 500 mg Chewable Tablet PO SCH ×2 (10:07→22:10)
[2021-08-27] MEDS: Senokot S 8.6-50 MG TAB PO SCH ×2 (10:07→22:11)
[2021-08-27] MEDS: Aspirin 81 mg Enteric Coated Tablet PO SCH ×2 (10:07→22:10)
[2021-08-27] MEDS: Ferrous Sulfate 325 MG TAB PO SCH ×2 (10:07→17:03)
[2021-08-27] MEDS: Polyethylene Glycol 3350 17 GM Packet PO SCH (10:07)
[2021-08-27 15:42] VITALS: BMI 23.6
[2021-08-27 20:32] LABS: Bilirubin Negative (Negative); Blood, Urine Negative (Negative); Clarity Clear (Clear); Glucose, Urine (Dipstick) Negative (Negative); Ketone, Urine Negative (Negative); Leukocyte Negative (Negative); Nitrite Negative (Negative); Protein, Urine (Dipstick) Negative (Neg-Trace); Specific Gravity, Urine 1.015 (1.005-1.030); Urobilinogen 0.2 mg/dL (Less than 2)
[2021-08-27] MEDS: Melatonin 3 MG TAB PO SCH (22:10)
[2021-08-27 23:22] LABS: RBC/HPF 0-3 HPF (0-3); Urine Culture Reflex No No; WBC/HPF 0-3 HPF (0-3)
[2021-08-28] MEDS: traMADol HCl 50 MG TAB PO SCH ×4 (00:08→17:45)
[2021-08-28] MEDS: Acetaminophen 500 MG TAB PO SCH ×4 (00:08→17:47)
[2021-08-28] MEDS: cloNIDine 0.1 MG TAB PO PRN (05:15)
[2021-08-28] MEDS: Polyethylene Glycol 3350 17 GM Packet PO SCH (09:20)
[2021-08-28] MEDS: Senokot S 8.6-50 MG TAB PO SCH ×2 (09:21→21:49)
[2021-08-28] MEDS: Aspirin 81 mg Enteric Coated Tablet PO SCH ×2 (09:21→21:49)
[2021-08-28] MEDS: Ascorbic Acid 500 mg Chewable Tablet PO SCH ×2 (09:21→21:49)
[2021-08-28] MEDS: Ferrous Sulfate 325 MG TAB PO SCH ×2 (09:21→17:45)
[2021-08-28] MEDS: Melatonin 3 MG TAB PO SCH (21:49)
[2021-08-29] MEDS: traMADol HCl 50 MG TAB PO SCH ×4 (02:08→17:50)
[2021-08-29] MEDS: Acetaminophen 500 MG TAB PO SCH ×4 (02:08→17:49)
[2021-08-29] MEDS: traMADol HCl 50 MG TAB PO PRN (04:00)
[2021-08-29] MEDS: cloNIDine 0.1 MG TAB PO PRN ×2 (06:35→21:45)
[2021-08-29] MEDS: Ascorbic Acid 500 mg Chewable Tablet PO SCH ×2 (10:05→21:45)
[2021-08-29] MEDS: Polyethylene Glycol 3350 17 GM Packet PO SCH (10:05)
[2021-08-29] MEDS: Ferrous Sulfate 325 MG TAB PO SCH ×2 (10:05→17:49)
[2021-08-29] MEDS: Aspirin 81 mg Enteric Coated Tablet PO SCH ×2 (10:05→21:45)
[2021-08-29] MEDS: Senokot S 8.6-50 MG TAB PO SCH ×2 (10:06→21:45)
[2021-08-29] MEDS: Melatonin 3 MG TAB PO SCH (21:45)
[2021-08-30] MEDS: traMADol HCl 50 MG TAB PO SCH ×4 (00:33→17:02)
[2021-08-30] MEDS: Acetaminophen 500 MG TAB PO SCH ×4 (00:35→17:03)
[2021-08-30 05:48] LABS: #Basophils 0.1 thou/uL (0.0-0.2); #Eosinphils 0.4 thou/uL (0.0-0.7); #Lymphocytes 1.1 thou/uL (1.20-3.40); #Monocytes 0.9 thou/uL (0.11-0.59); #Neutrophils 3.6 thou/uL (1.40-6.50); %Eosinophils 7.2 % (0.0-10.0); %Monocytes 14.8 % (0.0-10.0); %Neutrophils 59.1 % (42.0-75.0); Hemoglobin 9.4 g/dL (12.0-16.0); Mean Corpuscular HGB CONC 33.2 g/dL (32.0-36.0); Mean Corpuscular Hemoglobin 29.7 pg (27.0-31.0); Mean Corpuscular Volume 89.7 fL (78.0-98.0); Mean Platelet Volume 6.3 fL (7.4-10.4); Platelet Count 254 thou/uL (130-400); RBC Distribution Width 15.7 % (11.5-14.5); Red Blood Cell (RBC) Count 3.17 mill/uL (4.20-5.40); White Blood Cell (WBC) Count 6.1 thou/uL (4.8-10.8)
[2021-08-30 05:57] LABS: ALT (SGPT) 16 U/L (8-55); AST (SGOT) 28 U/L (5-34); Albumin 3.2 g/dL (3.4-4.8); Alkaline Phosphatase 78 U/L (40-110); Anion Gap 12 mmol/L (10-20); BUN (Urea Nitrogen) 12 mg/dL (9.8-20.1); Bilirubin, Total 0.8 mg/dL (0.2-1.2); Calc. Creatinine Clearance 68 mL/min (70-130); Calcium 8.5 mg/dL (7.8-10.44); Carbon Dioxide 27 mmol/L (23-31); Chloride 101 mmol/L (98-107); Estimated GFR 90; Glucose 97 mg/dL (83-110); Magnesium 1.5 mg/dL (1.6-2.6); Potassium 3.7 mmol/L (3.5-5.1); Protein, Total 5.2 g/dL (5.8-8.1); Sodium 136 mmol/L (136-145)
[2021-08-30] MEDS: Ferrous Sulfate 325 MG TAB PO SCH ×2 (08:59→16:38)
[2021-08-30] MEDS: NIFEdipine XL 30 MG TAB PO SCH (09:00)
[2021-08-30] MEDS: Aspirin 81 mg Enteric Coated Tablet PO SCH ×2 (09:01→21:22)
[2021-08-30] MEDS: Ascorbic Acid 500 mg Chewable Tablet PO SCH ×2 (09:01→21:22)
[2021-08-30] MEDS: Magnesium Oxide 400 MG TAB PO SCH (09:02)
[2021-08-30] MEDS: Polyethylene Glycol 3350 17 GM Packet PO SCH (09:03)
[2021-08-30] MEDS: Senokot S 8.6-50 MG TAB PO SCH ×2 (09:03→21:22)
[2021-08-30] MEDS ORDERED: Polyethylene Glycol 3350 17 GM Packet PO PRN (20:49)
[2021-08-30] MEDS: Melatonin 3 MG TAB PO SCH (21:22)
[2021-08-31] MEDS: traMADol HCl 50 MG TAB PO PRN (01:41)
[2021-08-31] MEDS: Acetaminophen 500 MG TAB PO SCH ×5 (05:14→23:00)
[2021-08-31] MEDS: traMADol HCl 50 MG TAB PO SCH ×5 (06:15→23:00)
[2021-08-31] MEDS: Ferrous Sulfate 325 MG TAB PO SCH ×2 (09:57→17:50)
[2021-08-31] MEDS: Aspirin 81 mg Enteric Coated Tablet PO SCH ×2 (09:57→20:31)
[2021-08-31] MEDS: NIFEdipine XL 30 MG TAB PO SCH (09:58)
[2021-08-31] MEDS: Ascorbic Acid 500 mg Chewable Tablet PO SCH ×2 (09:59→20:31)
[2021-08-31] MEDS: Magnesium Oxide 400 MG TAB PO SCH (09:59)
[2021-08-31] MEDS: Polyethylene Glycol 3350 17 GM Packet PO SCH (10:03)
[2021-08-31] MEDS: Senokot S 8.6-50 MG TAB PO SCH ×2 (10:03→20:31)
[2021-08-31] MEDS: Melatonin 3 MG TAB PO SCH (20:31)
[2021-09-01] MEDS: traMADol HCl 50 MG TAB PO SCH ×3 (05:18→17:46)
[2021-09-01] MEDS: Acetaminophen 500 MG TAB PO SCH ×3 (05:19→17:46)
[2021-09-01] MEDS: Polyethylene Glycol 3350 17 GM Packet PO SCH (09:27)
[2021-09-01] MEDS: Magnesium Oxide 400 MG TAB PO SCH (09:28)
[2021-09-01] MEDS: Aspirin 81 mg Enteric Coated Tablet PO SCH ×2 (09:28→22:25)
[2021-09-01] MEDS: Ascorbic Acid 500 mg Chewable Tablet PO SCH ×2 (09:28→22:25)
[2021-09-01] MEDS: Ferrous Sulfate 325 MG TAB PO SCH ×2 (09:29→17:49)
[2021-09-01] MEDS: NIFEdipine XL 30 MG TAB PO SCH (09:30)
[2021-09-01] MEDS: Senokot S 8.6-50 MG TAB PO SCH ×2 (09:31→22:24)
[2021-09-01] MEDS: Melatonin 3 MG TAB PO SCH (22:25)
[2021-09-02] MEDS: Acetaminophen 500 MG TAB PO SCH ×6 (01:57→19:45)
[2021-09-02] MEDS: traMADol HCl 50 MG TAB PO SCH ×6 (01:58→19:45)
[2021-09-02] MEDS: Polyethylene Glycol 3350 17 GM Packet PO SCH (08:25)
[2021-09-02] MEDS: NIFEdipine XL 30 MG TAB PO SCH (08:25)
[2021-09-02] MEDS: Ascorbic Acid 500 mg Chewable Tablet PO SCH ×2 (08:26→21:58)
[2021-09-02] MEDS: Aspirin 81 mg Enteric Coated Tablet PO SCH ×2 (08:26→21:59)
[2021-09-02] MEDS: Magnesium Oxide 400 MG TAB PO SCH (08:26)
[2021-09-02] MEDS: Ferrous Sulfate 325 MG TAB PO SCH ×2 (08:26→17:43)
[2021-09-02] MEDS: Senokot S 8.6-50 MG TAB PO SCH ×2 (08:27→21:59)
[2021-09-02] MEDS: Melatonin 3 MG TAB PO SCH (21:59)
[2021-09-03] MEDS: Acetaminophen 500 MG TAB PO SCH ×4 (01:50→11:59)
[2021-09-03] MEDS: traMADol HCl 50 MG TAB PO SCH ×3 (01:51→12:07)
[2021-09-03] MEDS: traMADol HCl 50 MG TAB PO PRN (02:17)
[2021-09-03 06:39] VITALS: TEMP 98
[2021-09-03] MEDS: Ferrous Sulfate 325 MG TAB PO SCH (09:29)
[2021-09-03] MEDS: Polyethylene Glycol 3350 17 GM Packet PO SCH (09:29)
[2021-09-03] MEDS: Magnesium Oxide 400 MG TAB PO SCH (09:29)
[2021-09-03] MEDS: Ascorbic Acid 500 mg Chewable Tablet PO SCH (09:30)
[2021-09-03] MEDS: NIFEdipine XL 30 MG TAB PO SCH (09:31)
[2021-09-03] MEDS: Aspirin 81 mg Enteric Coated Tablet PO SCH (09:31)
[2021-09-03] MEDS: Senokot S 8.6-50 MG TAB PO SCH (09:36)
[2021-09-03 09:41] VITALS: BP 161/69
== END 2021-09-03 15:00 | disposition home or self-care (01) | DRG 560 ==
LOC: BURMED 17:40
PROVIDERS: ADMIT Family Medicine; ATTEND Family Medicine
DX: S72.142D Displaced intertrochanteric fracture of left femur, subsequent encounter for closed fracture with routine healing (principal); C56.9 Malignant neoplasm of unspecified ovary; I50.32 Chronic diastolic (congestive) heart failure; I13.0 Hypertensive heart and chronic kidney disease with heart failure and stage 1 through stage 4 chronic kidney disease, or unspecified chronic kidney disease; W19.XXXD Unspecified fall, subsequent encounter; Z20.822 Contact with and (suspected) exposure to COVID-19; N18.9 Chronic kidney disease, unspecified; E78.5 Hyperlipidemia, unspecified; E83.41 Hypermagnesemia; Z90.49 Acquired absence of other specified parts of digestive tract; Z86.73 Personal history of transient ischemic attack (TIA), and cerebral infarction without residual deficits; Z87.891 Personal history of nicotine dependence; Z90.710 Acquired absence of both cervix and uterus; Z98.890 Other specified postprocedural states
CPT/HCPCS: 36415; 80053; 81001; 83735; 85025; U0003; U0005

== ENCOUNTER 2022-04-21 08:42 | Outpatient (CLI) | payer MEDICARE, BC ==
[~2022-04-21 08:42] MED LIST changes: -Acetaminophen 500 MG TAB ONE; +Iopamidol 370 76% 100 ML VIAL ONE; -Sodium Chloride 0.9% 10 ML ONE; -Sodium Chloride 0.9% 30 ML ONE; -diphenhydrAMINE 25 MG CAP ONE
== END 2022-04-21 08:43 | disposition home or self-care (01) ==
LOC: BURCT 08:42
PROVIDERS: ATTEND Internal Medicine Hematology & Oncology
DX: C56.2 Malignant neoplasm of left ovary (principal); R97.1 Elevated cancer antigen 125 [CA 125]
CPT/HCPCS: 74177; Q9967

== ENCOUNTER 2022-07-04 08:37 | Outpatient (CLI) | payer MEDICARE, BC ==
[2022-07-04] MEDS ORDERED: Iopamidol 370 76% 100 ML VIAL ONE (09:57)
== END 2022-07-04 08:38 | disposition home or self-care (01) ==
LOC: BURCT 08:37
PROVIDERS: ATTEND Internal Medicine Hematology & Oncology
DX: C56.9 Malignant neoplasm of unspecified ovary (principal); C48.8 Malignant neoplasm of overlapping sites of retroperitoneum and peritoneum; K80.20 Calculus of gallbladder without cholecystitis without obstruction
CPT/HCPCS: 74177; Q9967

== ENCOUNTER 2022-09-28 08:43 | Outpatient (CLI) | payer MEDICARE, BC ==
[2022-09-28] MEDS ORDERED: Iopamidol 370 76% 100 ML VIAL ONE (09:38)
== END 2022-09-28 08:44 | disposition home or self-care (01) ==
LOC: BURCT 08:43
PROVIDERS: ATTEND Internal Medicine Hematology & Oncology
DX: C56.2 Malignant neoplasm of left ovary (principal); C48.8 Malignant neoplasm of overlapping sites of retroperitoneum and peritoneum; R16.0 Hepatomegaly, not elsewhere classified; K66.8 Other specified disorders of peritoneum
CPT/HCPCS: 74177; Q9967

== ENCOUNTER 2023-06-15 01:30 | Inpatient (IN) | payer MEDICARE, BC ==
[2023-06-15] MEDS ORDERED: Polyethylene Glycol 3350 17 GM Packet PO PRN (15:25)
[2023-06-15] MEDS ORDERED: Calcium Carbonate 500 MG ChewTAB PO PRN (15:28)
[2023-06-15] MEDS: Enoxaparin 40 MG (0.4 mL) SYRINGE SC SCH (21:15)
[2023-06-15] MEDS: Acetaminophen 325 MG TAB PO PRN (23:46)
[2023-06-16 05:15] LABS: #Basophils 0.2 thou/uL (0.0-0.2); #Eosinphils 0.2 thou/uL (0.0-0.7); #Monocytes 1.4 thou/uL (0.11-0.59); #Neutrophils 10.1 thou/uL (1.40-6.50); %Basophils 1.4 % (0.0-1.0); %Eosinophils 1.3 % (0.0-10.0); %Lymphocytes 7.8 % (21.0-51.0); %Monocytes 11.1 % (0.0-10.0); %Neutrophils 78.4 % (42.0-75.0); Hemoglobin 7.2 g/dL (12.0-16.0); Mean Corpuscular HGB CONC 31.5 g/dL (32.0-36.0); Mean Corpuscular Hemoglobin 25.1 pg (27.0-31.0); Mean Corpuscular Volume 79.7 fl (78.0-98.0); Mean Platelet Volume 6.4 fL (7.4-10.4); Platelet Count 394 10x3/uL (130-400); RBC Distribution Width 15.2 % (11.5-14.5); Red Blood Cell (RBC) Count 2.88 mill/uL (4.20-5.40); White Blood Cell (WBC) Count 12.9 10x3/uL (4.8-10.8)
[2023-06-16 05:53] LABS: Anion Gap 15 mmol/L (10-20); BUN (Urea Nitrogen) 14 mg/dL (9.8-20.1); Calc. Creatinine Clearance 0 mL/min (70-130); Calcium 8.5 mg/dL (7.8-10.44); Carbon Dioxide 25 mmol/L (23-31); Chloride 95 mmol/L (98-107); Estimated GFR 87; Glucose 88 mg/dL (83-110); Potassium 4.4 mmol/L (3.5-5.1); Sodium 131 mmol/L (136-145)
[2023-06-16] MEDS: traMADol HCl 50 MG TAB PO PRN (07:10)
[2023-06-16] MEDS: Magnesium Oxide 400 MG TAB PO SCH (09:22)
[2023-06-16] MEDS: Pantoprazole DR 40 MG TAB PO SCH (09:22)
[2023-06-17] MEDS: hydrOXYzine 25 MG TAB PO PRN (08:50)
[2023-06-19 05:24] LABS: Hematocrit 22.8 % (36.0-47.0); Hemoglobin 7.2 g/dL (12.0-16.0); Platelet Count 396 10x3/uL (130-400)
[2023-06-19] MEDS: Melatonin 3 MG TAB PO PRN (22:28)
[2023-06-20] MEDS: Acetaminophen 325 MG TAB PO PRN (22:19)
[2023-06-21 08:16] VITALS: BMI 21.7
[2023-06-23 05:40] LABS: Hematocrit 23.9 % (36.0-47.0); Hemoglobin 7.4 g/dL (12.0-16.0); Platelet Count 387 10x3/uL (130-400)
[2023-06-23] MEDS: Sodium Chloride 0.9% 1,000 ML IV SCH (15:46)
[2023-06-27] MEDS: Temazepam 15 MG CAP PO PRN (20:08)
[2023-06-28] MEDS: traMADol HCl 50 MG TAB PO PRN (08:38)
[2023-06-28] MEDS: Sertraline 25 MG TAB PO SCH (08:40)
[2023-06-29 05:42] VITALS: BP 175/71; TEMP 98.2
== END 2023-06-29 11:50 | DRG 560 ==
LOC: BURMED 01:30 → UNDOADMIN 01:30 → BURMED 06-22 03:35
PROVIDERS: ADMIT Family Medicine; ATTEND Nurse Practitioner
DX: S72.141D Displaced intertrochanteric fracture of right femur, subsequent encounter for closed fracture with routine healing (principal); I13.0 Hypertensive heart and chronic kidney disease with heart failure and stage 1 through stage 4 chronic kidney disease, or unspecified chronic kidney disease; I50.32 Chronic diastolic (congestive) heart failure; Z66 Do not resuscitate; D50.9 Iron deficiency anemia, unspecified; E86.0 Dehydration; N18.9 Chronic kidney disease, unspecified; Z85.43 Personal history of malignant neoplasm of ovary; Z86.73 Personal history of transient ischemic attack (TIA), and cerebral infarction without residual deficits; Z90.710 Acquired absence of both cervix and uterus; Z90.49 Acquired absence of other specified parts of digestive tract; Z79.899 Other long term (current) drug therapy
CPT/HCPCS: 36415; 80048; 82565; 85014; 85018; 85025; 85049; J1650; J7050

== ENCOUNTER 2023-08-20 18:06 | Emergency (ER) | payer MEDICARE, BC ==
[2023-08-20] MEDS ORDERED: Acetaminophen 500 MG TAB ONE (18:28)
== END 2023-08-20 18:45 | disposition home or self-care (01) ==
LOC: BURERS 18:06
DX: S01.81XA Laceration without foreign body of other part of head, initial encounter (principal); I10 Essential (primary) hypertension; E78.5 Hyperlipidemia, unspecified; Z87.891 Personal history of nicotine dependence; Z79.899 Other long term (current) drug therapy; W18.30XA Fall on same level, unspecified, initial encounter
CPT/HCPCS: 12011; 99283